=== PATIENT | female | born 1980 | race African-American/Black ===

== ENCOUNTER 2018-03-28 07:16 | Emergency (ER) | payer OTHER ==
[~2018-03-28] VITALS: Ht 160 cm; Wt 64.0 kg
[2018-03-28] MEDS ORDERED: ZOFRAN ODT4 MG PO (09:31)
[2018-03-28] MEDS ORDERED: PEPCID20 MG PO (09:31)
[2018-03-28 09:39] VITALS: BP 128/80
== END 2018-03-28 09:39 | disposition home or self-care (01) ==
LOC: ER 07:16
DX: J06.9 Acute upper respiratory infection, unspecified (principal)